=== PATIENT | male | born 1995 | race African-American/Black ===

== ENCOUNTER 2020-09-04 09:48 | Emergency (ER) | payer OTHER ==
[~2020-09-04] VITALS: Ht 182.9 cm; Wt 79.4 kg
[2020-09-04] MEDS ORDERED: NAPROSYN500 MG PO (11:56)
[2020-09-04] MEDS ORDERED: TYLENOL325 M1 PO (11:56)
[2020-09-04] MEDS ORDERED: FLEXERIL PO (11:56)
[2020-09-04 12:01] VITALS: BP 109/63
== END 2020-09-04 12:01 | disposition home or self-care (01) ==
LOC: ER 09:48
DX: M62.838 Other muscle spasm (principal); M25.512 Pain in left shoulder